=== PATIENT | female | born 1935 | race Caucasian/White ===

== ENCOUNTER 2019-05-14 08:26 | Outpatient (CLI) | payer MEDICARE, OTHER, SELFPAY ==
--- NOTE | 2019-05-17 05:54 | ONC FU_ITS ---
Dr. Arndt Patient Follow-Up Note Patient: Liz Fontaine Unit #: [id number]: 1935 Dicatated By: Tom Arndt M.D.Date of Visit:May 14, 2019 Onc Med Follow-up/Prog Note Chief Complaint: Suspected bone metastases. History of Present Illness: This is an 83 year-old woman with findings on xray and bone scan which were suggestive of possible metastatic disease in the lumbar spine. She has a known history of left breast cancer for which she had undergone left mastectomy in 1980. Those records were not available. I had seen her initially in 2004 after she had a biopsy proven recurrence in the left chest wall. That tumor was confirmed to be ER/NH positive and HER-2/lei negative. She was given prophylactic chest wall radiation followed by adjuvant hormonal therapy with tamoxifen. She stopped treatment in March 2009 due to poor tolerance. As of her follow-up visit in September 2011 there had been no evidence of recurrence of the breast cancer. She has additional history of superficial transitional cell bladder cancer for which she underwent TURBT procedures in July 2007 and in November 2011. 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 At her scheduled follow-up visit with Dr. Berry of 07/25/2018 her x-ray of the lumbar spine showed a new blastic lesion of the L3 vertebral body which was felt to be suspicious for metastatic disease. There was a possible additional blastic lesion on the left side of the sacrum at S1. Further evaluation with bone scan on 08/01/2018 showed intermediate uptake in the right lateral L3 and L2 vertebral bodies. The L3 lesion was noted to correspond to the sclerotic changes seen on the lumbar spine x-ray. More intense uptake involving the left lateral L6 vertebral body was noted to correspond to a large hypertrophic osteophyte. The left sacral lesion seen on the radiograph showed minimal increased uptake. Additional evaluation with MRI was recommended. I had seen her for a follow-up visit on 08/07/2018. She was not overtly symptomatic. She initially declined to have the PET/CT or MRI. However, subsequent laboratory studies did show an elevated CA 27.29 level at 76.82 U/mL, and she then had further evaluation with PET/CT on 09/15/2018. It showed relatively intense activity in the superior left hilar lymph node which measured 8 mm, SUV 6.2. It was felt to be strongly suspicious for recurrent malignancy. However, densely sclerotic lesions at T6 and L3 were entirely FDG negative. There were no other areas of abnormal uptake on that study. A follow-up chest CT on 12/17/2018 showed no evidence for lymph node enlargement. In particular, there was no evidence for a suspicious left perihilar node. There was a small left pleural effusion and there was scarring adjacent to the pleural surface of the lingula thought to most likely be a result of therapy. There was associated volume loss of the left lung. 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 With those findings and in the absence of any associated symptoms, I opted to just continue with observation/expectant management. Her other medical illnesses include hypertension, hyperlipidemia, type II diabetes, and osteoporosis. She has a history of right lower extremity deep vein thrombosis following a left total hip arthroplasty procedure in 2007. She opted to go off anticoagulation after stopping tamoxifen 2009. Her prior surgeries include hysterectomy/bilateral salpingo-oophorectomy in 1977. She has a history of smoking 1 pack of cigarettes daily for 20 years. She quit smoking in 1994. INTERIM HISTORY: As of her follow-up visit in December 2018 there was a slight further increase in the CA-27-29 level to 80.79 U/mL. She remained asymptomatic, and she continued on observation/expectant management. She is seen for a scheduled visit. She has been feeling good generally. She says her energy is fair. She has normal activity. Her appetite is good. Her weight is stable. She has no fever, night sweats, or hot flashes. She has no shortness of breath, cough, or chest pain. She still sometimes has diarrhea. It is controlled with Imodium, though management is difficult because it is unpredictable. She has no other GI or complaints. She has some aching in her joints when she overdoes it, mainly in her shoulders. She still sometimes has pain in her left chest wall. She has no other joint or bone pain. She has no focal neurologic symptoms. Medications: Atenolol 1 Tablet (of 15 mg) Oral daily, Felodipine ER 1 Tablet (of 5 mg) Tablet SR 24 HR Oral daily, Lisinopril 1 (10 mg) Tablet Oral daily, Simvastatin 1 (40 mg) Tablet Oral daily Allergies: Aspirin Review of Systems: Constitutional - Her energy is fair. She has normal activity. Appetite is good and weight is stable. No fever, hot flashes, or night sweats. ECOG score is 0, ENMT - No sinus congestion/drainage. No mouth sores. No sore throat or difficulty swallowing, Hematologic/Lymphatic - She bruises easily, Respiratory - No shortness of breath. No cough. No pleuritic pain or hemoptysis, Cardiovascular - No angina pain. No palpitations, Gastrointestinal - No nausea or vomiting. No heartburn or acid reflux. She sometimes has diarrhea. No blood in the stool or black stools, Genitourinary (F) - No dysuria or hematuria. No urinary frequency. No urgency or incontinence, Musculoskeletal - She has a little joint pain when she overdoes it, mainly in the shoulders. She still occasionally has pain in her left chest wall. She has no other joint or bone pain, Integumentary - No skin complications, Neurologic - No headache or dizziness. She has been getting more clumsy. No numbness/paresthesias or other focal neurologic symptoms, Psychiatric - No anxiety or depression. No insomnia. Vital Signs: Performed on May 14, 2019 12:48 Height - 63.00 in Weight - 145 lbs BSA - 1.69 sq.m BMI - 25.69 Temperature - 98 F (LOW) Pulse - 62 /min Respiration - 14 /min BP - 170/70 mm(hg) (HIGH) O2 Sat - 97 % Pain - 0 Physical Examination: Constitutional - She looks good generally, Eyes - Sclerae nonicteric. Conjunctivae clear, ENMT - No lesions noted in the oral cavity, Hematologic/Lymphatic - No cervical, clavicular, or axillary adenopathy, Respiratory - Lungs are clear with good air movement bilaterally, Cardiovascular - Heart rhythm is regular. There is no murmur, gallop, or rub noted, Abdomen - Soft. Liver and spleen are not enlarged. There is no abdominal mass or ascites noted and there is no inguinal adenopathy, Extremities - No edema. Pedal pulses are palpable bilaterally, Neurologic - No focal neurologic deficits noted. Lab/Imaging: Test performed on Apr 09, 2019 09:17 Glucose 150 mg/dL BUN 19 mg/dL Creatinine 1.33 mg/dL Cr Clearance (Est) 32.69 mL/min Sodium 139 mmol/L Potassium 4.7 mmol/L Chloride 104 mmol/L CO2 24 mmol/L Calcium 9.6 mg/dL Protein, Total 7.5 g/dL Albumin 4.3 g/dL Bilirubin, Total 0.4 mg/dL Alkaline Phosphatase 65 IU/L AST (SGOT) 21 IU/L ALT (SGPT) 15 IU/L WBC 5.3 10^9/L RBC 4.82 10^12/L HGB 14.3 g/dL HCT 45.3 % MCV 94.0 fl MCH 29.7 pg MCHC 31.6 g/dL RDW 13.1 % Platelet Count 208 10^9/L MPV 9.3 fL Neutrophils (Gran) 3.45 10^9/L Lymphocytes 1.06 10^9/L Monocytes 0.58 10^9/L Eosinophils 0.21 10^9/L Manual Lymphocytes 20 % Manual Monocytes 11 % Manual Eosinophils 4 % CA 27.29 82.6 Units/mL Impression: 1. 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 2. She has known history of left breast cancer treated with left mastectomy 1980. She had a chest wall recurrence in 2004 treated by excision followed by radiation and 5 years of adjuvant tamoxifen. 3. 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 4. She had previously undergone TURBT for superficial bladder cancer in July 2007 and in November 2011. Her other medical illnesses include: 5. Hypertension. 6. Hyperlipidemia. 7. Type II diabetes. 8. Chronic kidney disease. 9. Osteoporosis. 10. She has a history of right lower extremity DVT following left total hip arthroplasty in 2007. I had seen her initially on 08/07/2018. She was having some mild back pain, but at that point she preferred to just continue with observation/expectant management. On subsequent evaluation her CA-27-29 level was found to be moderately elevated, suspicious for metastatic breast cancer. Further evaluation with PET/CT on 09/15/2018 showed relatively intense activity in the superior left hilar lymph node which measured 8 mm, SUV 6.2. It was felt to be strongly suspicious for recurrent malignancy. However, densely sclerotic lesions at T6 and L3 were entirely FDG negative. There were no other areas of abnormal uptake on that study. With those findings, I opted to just continue with observation/expectant management. A follow-up chest CT on 12/17/2018 showed no evidence for lymph node enlargement. In particular, there was no evidence for a suspicious left perihilar node. There was a small left pleural effusion and there was scarring adjacent to the pleural surface of the lingula thought to most likely be a result of therapy. There was associated volume loss of the left lung. 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 During subsequent followup there has been a slight further increase in her CA-27-29 level, but her clinical status has remained stable. Overall, the findings are nonspecific but still suspicious for slowly progressive metastatic breast cancer. Plan: She continues on observation/expectant management. She will be scheduled fo a follow-up visit and restaging PET/CT in September, which will exceed a one year interval from the previous study. Signed By: Tom Arndt M.D. <<Signature on File>>
== END 2019-05-14 10:31 | disposition home or self-care (01) ==
PROVIDERS: Family Provider Physician Assistant Medical; PCP Physician Assistant Medical; Visit Provider Internal Medicine Medical Oncology
DX: Z08 Encounter for follow-up examination after completed treatment for malignant neoplasm (principal); Z85.3 Personal history of malignant neoplasm of breast; R97.8 Other abnormal tumor markers; Z85.528 Personal history of other malignant neoplasm of kidney; Z85.51 Personal history of malignant neoplasm of bladder; E78.5 Hyperlipidemia, unspecified; I12.9 Hypertensive chronic kidney disease with stage 1 through stage 4 chronic kidney disease, or unspecified chronic kidney disease; E11.22 Type 2 diabetes mellitus with diabetic chronic kidney disease; N18.9 Chronic kidney disease, unspecified; M81.0 Age-related osteoporosis without current pathological fracture; Z79.899 Other long term (current) drug therapy; Z92.23 Personal history of estrogen therapy; Z90.12 Acquired absence of left breast and nipple; Z92.3 Personal history of irradiation; Z90.5 Acquired absence of kidney; Z86.718 Personal history of other venous thrombosis and embolism; Z96.642 Presence of left artificial hip joint
CPT/HCPCS: 99214

== ENCOUNTER 2019-10-15 13:23 | Outpatient (CLI) | payer MEDICARE, OTHER, SELFPAY ==
--- NOTE | 2019-10-16 07:20 | ONC FU_ITS ---
Dr. Arndt Patient Follow-Up Note Patient: Liz Fontaine Unit #: [id number]: 1935 Dicatated By: Tom Arndt M.D.Date of Visit:Oct 15, 2019 Onc Med Follow-up/Prog Note Chief Complaint: Suspected bone metastases. History of Present Illness: This is an 84 year-old woman with findings on xray and bone scan which were suggestive of possible metastatic disease in the lumbar spine. She has a known history of left breast cancer for which she had undergone left mastectomy in 1980. Those records were not available. I had seen her initially in 2004 after she had a biopsy proven recurrence in the left chest wall. That tumor was confirmed to be ER/WA positive and HER-2/lei negative. She was given prophylactic chest wall radiation followed by adjuvant hormonal therapy with tamoxifen. She stopped treatment in March 2009 due to poor tolerance. As of her follow-up visit in September 2011 there had been no evidence of recurrence of the breast cancer. She has additional history of superficial transitional cell bladder cancer for which she underwent TURBT procedures in July 2007 and in November 2011. 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 At her scheduled follow-up visit with Dr. Berry of 07/25/2018 her x-ray of the lumbar spine showed a new blastic lesion of the L3 vertebral body which was felt to be suspicious for metastatic disease. There was a possible additional blastic lesion on the left side of the sacrum at S1. Further evaluation with bone scan on 08/01/2018 showed intermediate uptake in the right lateral L3 and L2 vertebral bodies. The L3 lesion was noted to correspond to the sclerotic changes seen on the lumbar spine x-ray. More intense uptake involving the left lateral L6 vertebral body was noted to correspond to a large hypertrophic osteophyte. The left sacral lesion seen on the radiograph showed minimal increased uptake. Additional evaluation with MRI was recommended. I had seen her for a follow-up visit on 08/07/2018. She was not overtly symptomatic. She initially declined to have the PET/CT or MRI. However, subsequent laboratory studies did show an elevated CA 27.29 level at 76.82 U/mL, and she then had further evaluation with PET/CT on 09/15/2018. It showed relatively intense activity in the superior left hilar lymph node which measured 8 mm, SUV 6.2. It was felt to be strongly suspicious for recurrent malignancy. However, densely sclerotic lesions at T6 and L3 were entirely FDG negative. There were no other areas of abnormal uptake on that study. A follow-up chest CT on 12/17/2018 showed no evidence for lymph node enlargement. In particular, there was no evidence for a suspicious left perihilar node. There was a small left pleural effusion and there was scarring adjacent to the pleural surface of the lingula thought to most likely be a result of therapy. There was associated volume loss of the left lung. 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 With those findings and in the absence of any associated symptoms, I opted to just continue with observation/expectant management. Her other medical illnesses include hypertension, hyperlipidemia, type II diabetes, and osteoporosis. She has a history of right lower extremity deep vein thrombosis following a left total hip arthroplasty procedure in 2007. She opted to go off anticoagulation after stopping tamoxifen 2009. Her prior surgeries include hysterectomy/bilateral salpingo-oophorectomy in 1977. She has a history of smoking 1 pack of cigarettes daily for 20 years. She quit smoking in 1994. INTERIM HISTORY: As of her follow-up visit in December 2018 there was a slight further increase in the CA-27-29 level to 80.79 U/mL. She remained asymptomatic, and she continued on observation/expectant management. As of March 2019 the CA-27-29 level had further increased to 82.6 U/mL. She is seen for a scheduled visit. She has not been feeling as good generally. Her energy is less, and she has been sitting around a lot. She is still doing light work. Her ECOG score is 1. She has good appetite. She has no fever or night sweats. She says that about a month ago her legs have been hurting her a lot at night. X-rays were apparently unrevealing. She was given pain medication, and she says the legs are not hurting so much now, but they do feel heavy, and she is having to make an effort to pick them up. She also has difficulty getting up from a chair. She has fallen twice. She has some shortness of breath when she is walking outside. Her breathing is otherwise okay. She does not have cough, and she does not complain of chest pain. She has been having diarrhea, but her bowels have been okay for the past couple of months. She has no other GI complaints. She has some urgency with urination. She also has some pain in her lower back/sacroiliac area on the right side. She does not complain of headache. She sometimes has dizziness. She has no focal neurologic symptoms. Medications: Atenolol 1 Tablet (of 15 mg) Oral daily, Felodipine ER 1 Tablet (of 5 mg) Tablet SR 24 HR Oral daily, Lisinopril 1 (10 mg) Tablet Oral daily, Simvastatin 1 (40 mg) Tablet Oral daily Allergies: Aspirin Review of Systems: Constitutional - She feels good, but her energy is just fair. She does light housework. Her appetite is good and weight is stable. No fever, night sweats, or hot flashes. ECOG score is 1, ENMT - No sinus congestion/drainage. No mouth sores. No sore throat or difficulty swallowing, Hematologic/Lymphatic - She bruises easily, Respiratory - She has mild exertional dyspnea. No cough. No pleuritic pain or hemoptysis, Cardiovascular - No angina pain. No palpitations, Gastrointestinal - No nausea or vomiting. No heartburn or acid reflux. She sometimes has diarrhea. No blood in the stool or black stools, Genitourinary (F) - No dysuria or hematuria. She has urinary frequency with urgency. No incontinence, Musculoskeletal - She was having severe pain in her legs. It first occured about 1 month ago and it was mainly at night. She was given pain medication which helped. She reports the pain is better but she has a heaviness in her legs now. This has caused her to fall a few times. She also has some pain in her lower back/sacroiliac area on the right side, Integumentary - No skin complications, Neurologic - No headache or dizziness. No numbness or tingling. No other focal neurologic symptoms, Psychiatric - No anxiety or depression. No insomnia. Vital Signs: Performed on Oct 15, 2019 13:25 Height - 63.00 in Weight - 140 lbs (LOW) BSA - 1.66 sq.m BMI - 24.80 Temperature - 98.4 F Pulse - 71 /min Respiration - 17 /min BP - 157/73 mm(hg) (HIGH) O2 Sat - 96 % Pain - 0 Physical Examination: Constitutional - She looks good generally, Eyes - Sclerae nonicteric. Conjunctivae clear, ENMT - No lesions noted in the oral cavity, Hematologic/Lymphatic - No cervical, clavicular, or axillary adenopathy, Respiratory - Lungs are clear with good air movement bilaterally, Cardiovascular - Heart rhythm is regular. There is no murmur, gallop, or rub noted, Abdomen - Soft. Liver and spleen are not enlarged. There is no abdominal mass or ascites noted and there is no inguinal adenopathy, Extremities - No edema. Pedal pulses are palpable bilaterally, Neurologic - She appears to have some weakness in the proximal leg musculature. There are no focal neurologic deficits noted. Lab/Imaging: Test performed on Oct 14, 2019 09:07 Glucose 142 mg/dL BUN 22 mg/dL Creatinine 1.34 mg/dL Cr Clearance (Est) 31.87 mL/min Sodium 143 mmol/L Potassium 4.4 mmol/L Chloride 110 mmol/L CO2 22 mmol/L Calcium 9.8 mg/dL Protein, Total 7.0 g/dL Albumin 4.1 g/dL Bilirubin, Total 0.5 mg/dL Alkaline Phosphatase 55 IU/L AST (SGOT) 22 IU/L ALT (SGPT) 16 IU/L WBC 5.8 10^9/L RBC 4.44 10^12/L HGB 13.4 g/dL HCT 41.1 % MCV 92.6 fl MCH 30.2 pg MCHC 32.6 g/dL RDW 13.0 % Platelet Count 220 10^9/L MPV 9.2 fL Neutrophils (Gran) 3.38 10^9/L Lymphocytes 1.07 10^9/L Monocytes 0.59 10^9/L Eosinophils 0.66 10^9/L Basophils 0.08 10^9/L Manual Lymphocytes 19 % Manual Monocytes 10 % Manual Eosinophils 11 % Manual Basophils 1 % Impression: 1. 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 2. She has known history of left breast cancer treated with left mastectomy 1980. She had a chest wall recurrence in 2004 treated by excision followed by radiation and 5 years of adjuvant tamoxifen. 3. 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 4. She had previously undergone TURBT for superficial bladder cancer in July 2007 and in November 2011. Her other medical illnesses include: 5. Hypertension. 6. Hyperlipidemia. 7. Type II diabetes. 8. Chronic kidney disease. 9. Osteoporosis. 10. She has a history of right lower extremity DVT following left total hip arthroplasty in 2007. I had seen her initially on 08/07/2018. She was having some mild back pain, but at that point she preferred to just continue with observation/expectant management. On subsequent evaluation her CA-27-29 level was found to be moderately elevated, suspicious for metastatic breast cancer. Further evaluation with PET/CT on 09/15/2018 showed relatively intense activity in the superior left hilar lymph node which measured 8 mm, SUV 6.2. It was felt to be strongly suspicious for recurrent malignancy. However, densely sclerotic lesions at T6 and L3 were entirely FDG negative. There were no other areas of abnormal uptake on that study. With those findings, I opted to just continue with observation/expectant management. A follow-up chest CT on 12/17/2018 showed no evidence for lymph node enlargement. In particular, there was no evidence for a suspicious left perihilar node. There was a small left pleural effusion and there was scarring adjacent to the pleural surface of the lingula thought to most likely be a result of therapy. There was associated volume loss of the left lung. 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 During subsequent followup there was a continued slight increase in her CA-27-29 levels, but her clinical status had remained stable. Since her visit in March 2019 there has been a decline in her activity tolerance, and she also appears to have developed some weakness in the proximal leg musculature. The current CA-27-29 level is pending, but overall I remain concerned about the possibility of very slowly progressive metastatic breast cancer and also about the possibility of a paraneoplastic neuromuscular process. Plan: At this point I will wait for the results of the CA-27-29 level. If there is any further increase I will schedule her for a repeat bone scan. She will have further evaluation with PET/CT as indicated. Signed By: Tom Arndt M.D. <<Signature on File>>
== END 2019-10-15 13:24 | disposition home or self-care (01) ==
PROVIDERS: PCP Physician Assistant Medical; Visit Provider Internal Medicine Medical Oncology
DX: R93.7 Abnormal findings on diagnostic imaging of other parts of musculoskeletal system (principal); R97.8 Other abnormal tumor markers; Z85.3 Personal history of malignant neoplasm of breast; M62.81 Muscle weakness (generalized)
CPT/HCPCS: 99214

== ENCOUNTER 2020-01-14 11:26 | Outpatient (CLI) | payer MEDICARE, OTHER, SELFPAY ==
--- NOTE | 2020-01-17 18:00 | ONC FU_ITS ---
Dr. Arndt Patient Follow-Up Note Patient: Liz Fontaine Unit #: [id number]: 1935 Dicatated By: Tom Arndt M.D.Date of Visit:Jan 14, 2020 Onc Med Follow-up/Prog Note Chief Complaint: Suspected bone metastases. History of Present Illness: This is an 84 year-old woman with findings on xray and bone scan which were suggestive of possible metastatic disease in the lumbar spine. She has a known history of left breast cancer for which she had undergone left mastectomy in 1980. Those records were not available. I had seen her initially in 2004 after she had a biopsy proven recurrence in the left chest wall. That tumor was confirmed to be ER/MS positive and HER-2/lei negative. She was given prophylactic chest wall radiation followed by adjuvant hormonal therapy with tamoxifen. She stopped treatment in March 2009 due to poor tolerance. As of her follow-up visit in September 2011 there had been no evidence of recurrence of the breast cancer. She has additional history of superficial transitional cell bladder cancer for which she underwent TURBT procedures in July 2007 and in November 2011. 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 At her scheduled follow-up visit with Dr. Berry of 07/25/2018 her x-ray of the lumbar spine showed a new blastic lesion of the L3 vertebral body which was felt to be suspicious for metastatic disease. There was a possible additional blastic lesion on the left side of the sacrum at S1. Further evaluation with bone scan on 08/01/2018 showed intermediate uptake in the right lateral L3 and L2 vertebral bodies. The L3 lesion was noted to correspond to the sclerotic changes seen on the lumbar spine x-ray. More intense uptake involving the left lateral L6 vertebral body was noted to correspond to a large hypertrophic osteophyte. The left sacral lesion seen on the radiograph showed minimal increased uptake. Additional evaluation with MRI was recommended. I had seen her for a follow-up visit on 08/07/2018. She was not overtly symptomatic. She initially declined to have the PET/CT or MRI. However, subsequent laboratory studies did show an elevated CA 27.29 level at 76.82 U/mL, and she then had further evaluation with PET/CT on 09/15/2018. It showed relatively intense activity in the superior left hilar lymph node which measured 8 mm, SUV 6.2. It was felt to be strongly suspicious for recurrent malignancy. However, densely sclerotic lesions at T6 and L3 were entirely FDG negative. There were no other areas of abnormal uptake on that study. A follow-up chest CT on 12/17/2018 showed no evidence for lymph node enlargement. In particular, there was no evidence for a suspicious left perihilar node. There was a small left pleural effusion and there was scarring adjacent to the pleural surface of the lingula thought to most likely be a result of therapy. There was associated volume loss of the left lung. 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 With those findings and in the absence of any associated symptoms, I opted to just continue with observation/expectant management. Her other medical illnesses include hypertension, hyperlipidemia, type II diabetes, and osteoporosis. She has a history of right lower extremity deep vein thrombosis following a left total hip arthroplasty procedure in 2007. She opted to go off anticoagulation after stopping tamoxifen 2009. Her prior surgeries include hysterectomy/bilateral salpingo-oophorectomy in 1977. She has a history of smoking 1 pack of cigarettes daily for 20 years. She quit smoking in 1994. INTERIM HISTORY: As of her follow-up visit in December 2018 there was a slight further increase in the CA-27-29 level to 80.79 U/mL. She remained asymptomatic, and she continued on observation/expectant management. As of March 2019 the CA-27-29 level had further increased to 82.6 U/mL. She is seen for a scheduled visit. She says she is doing fine. She has pretty good energy and she has normal activity. ECOG score is 0. Her appetite is good. She has no fever or night sweats. She has no shortness of breath, cough, or chest pain. She has no GI or complaints other than she is voiding more frequently now. She has no significant joint or bone pain. She has no focal neurologic symptoms. Medications: Atenolol 1 Tablet (of 15 mg) Oral daily, Felodipine ER 1 Tablet (of 5 mg) Tablet SR 24 HR Oral daily, Lisinopril 1 (10 mg) Tablet Oral daily, Simvastatin 1 (40 mg) Tablet Oral daily Allergies: Aspirin Review of Systems: Constitutional - She has been feeling fine. Her energy is good. She has normal activity without restrictions. Her appetite is good and her weight is stable. No fever, night sweats, or hot flashes. ECOG score is 0, ENMT - No sinus congestion/drainage. No mouth sores. No sore throat or difficulty swallowing, Hematologic/Lymphatic - She bruises easily, Respiratory - No shortness of breath. No cough. No pleuritic pain or hemoptysis, Cardiovascular - No angina pain. No palpitations, Gastrointestinal - No nausea or vomiting. No heartburn or acid reflux. No diarrhea or constipation. No blood in the stool or black stools, Genitourinary (F) - No dysuria or hematuria. She's noticed more frequency in urination. No urgency or incontinence, Musculoskeletal - No joint or bone pain, Integumentary - No skin complications, Neurologic - No headache. She has occasional dizziness. No numbness or tingling. No other focal neurologic symptoms, Psychiatric - No anxiety or depression. No insomnia. Vital Signs: Performed on Jan 14, 2020 11:27 Height - 63.00 in Weight - 140 lbs BSA - 1.66 sq.m BMI - 24.80 Temperature - 97.1 F (LOW) Pulse - 59 /min (LOW) Respiration - 16 /min BP - 142/58 mm(hg) (HIGH) O2 Sat - 97 % Pain - 0 Physical Examination: Constitutional - She looks good generally, Eyes - Sclerae nonicteric. Conjunctivae clear, ENMT - No lesions noted in the oral cavity, Hematologic/Lymphatic - No cervical, clavicular, or axillary adenopathy, Respiratory - Lungs are clear with good air movement bilaterally, Cardiovascular - Heart rhythm is regular. There is no murmur, gallop, or rub noted, Abdomen - Soft. Liver and spleen are not enlarged. There is no abdominal mass or ascites noted and there is no inguinal adenopathy, Extremities - No edema, Neurologic - No focal neurologic deficits noted. Lab/Imaging: Test performed on Jan 09, 2020 14:47 Glucose 150 mg/dL BUN 25 mg/dL Creatinine 1.34 mg/dL Cr Clearance (Est) 30.77 mL/min Sodium 138 mmol/L Potassium 4.9 mmol/L Chloride 106 mmol/L CO2 23 mmol/L Calcium 9.8 mg/dL Protein, Total 7 g/dL Albumin 4.1 g/dL Bilirubin, Total 0.3 mg/dL Alkaline Phosphatase 70 IU/L AST (SGOT) 20 IU/L ALT (SGPT) 15 IU/L WBC 6.4 10^9/L RBC 4.62 10^12/L HGB 13.8 g/dL HCT 43.5 % MCV 94.2 fl MCH 29.9 pg MCHC 31.7 g/dL RDW 12.7 % Platelet Count 233 10^9/L Neutrophils (Gran) 3.78 10^9/L Lymphocytes 1.14 10^9/L Monocytes 0.65 10^9/L Eosinophils 0.67 10^9/L Basophils 0.09 10^9/L Test performed on Jan 09, 2020 09:44 CA 15-3 53.3 Units/mL Impression: 1. 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 2. She has known history of left breast cancer treated with left mastectomy 1980. She had a chest wall recurrence in 2004 treated by excision followed by radiation and 5 years of adjuvant tamoxifen. 3. 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 4. She had previously undergone TURBT for superficial bladder cancer in July 2007 and in November 2011. Her other medical illnesses include: 5. Hypertension. 6. Hyperlipidemia. 7. Type II diabetes. 8. Chronic kidney disease. 9. Osteoporosis. 10. She has a history of right lower extremity DVT following left total hip arthroplasty in 2007. I had seen her initially on 08/07/2018. She was having some mild back pain, but at that point she preferred to just continue with observation/expectant management. On subsequent evaluation her CA-27-29 level was found to be moderately elevated, suspicious for metastatic breast cancer. Further evaluation with PET/CT on 09/15/2018 showed relatively intense activity in the superior left hilar lymph node which measured 8 mm, SUV 6.2. It was felt to be strongly suspicious for recurrent malignancy. However, densely sclerotic lesions at T6 and L3 were entirely FDG negative. There were no other areas of abnormal uptake on that study. With those findings, I opted to just continue with observation/expectant management. A follow-up chest CT on 12/17/2018 showed no evidence for lymph node enlargement. In particular, there was no evidence for a suspicious left perihilar node. There was a small left pleural effusion and there was scarring adjacent to the pleural surface of the lingula thought to most likely be a result of therapy. There was associated volume loss of the left lung. 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 During subsequent followup there was a continued slight increase in her CA-27-29 levels, but her clinical status had remained stable. Subsequent to her visit in March 2019 she had experienced some decline in her activity tolerance, and she also had developed some weakness in the proximal leg musculature. A specific cause for that was not determined, and she has since then been feeling better. Her repeat CA 27-29 level in September had come down a little, to 72.2 U/mL. The current level cannot be compared, as it was substituted with a CA 15-3. However, based on the reported normal range, it does not appear to have increased. Plan: She remains on observation/expectant management. I will see her again in 3 months. Signed By: Tom Arndt M.D. <<Signature on File>>
== END 2020-01-14 11:27 | disposition home or self-care (01) ==
LOC: ONCMED 11:26
PROVIDERS: PCP Physician Assistant Medical; Visit Provider Internal Medicine Medical Oncology
DX: Z08 Encounter for follow-up examination after completed treatment for malignant neoplasm (principal); Z85.3 Personal history of malignant neoplasm of breast; Z85.830 Personal history of malignant neoplasm of bone; M81.0 Age-related osteoporosis without current pathological fracture; I10 Essential (primary) hypertension; E78.5 Hyperlipidemia, unspecified; E11.9 Type 2 diabetes mellitus without complications; N18.9 Chronic kidney disease, unspecified; Z86.718 Personal history of other venous thrombosis and embolism; Z79.818 Long term (current) use of other agents affecting estrogen receptors and estrogen levels
CPT/HCPCS: G0463

== ENCOUNTER 2020-04-14 11:30 | Outpatient (CLI) | payer MEDICARE, OTHER, SELFPAY ==
--- NOTE | 2020-04-17 17:19 | ONC FU_ITS ---
Dr. Arndt Patient Follow-Up Note Patient: Liz Fontaine Unit #: [id number]: 1935 Dicatated By: Tom Arndt M.D.Date of Visit:Apr 14, 2020 Onc Med Follow-up/Prog Note Chief Complaint: Suspected bone metastases. History of Present Illness: This is an 84 year-old woman with findings on xray and bone scan which were suggestive of possible metastatic disease in the lumbar spine. She has a known history of left breast cancer for which she had undergone left mastectomy in 1980. Those records were not available. I had seen her initially in 2004 after she had a biopsy proven recurrence in the left chest wall. That tumor was confirmed to be ER/AR positive and HER-2/lei negative. She was given prophylactic chest wall radiation followed by adjuvant hormonal therapy with tamoxifen. She stopped treatment in March 2009 due to poor tolerance. As of her follow-up visit in September 2011 there had been no evidence of recurrence of the breast cancer. She has additional history of superficial transitional cell bladder cancer for which she underwent TURBT procedures in July 2007 and in November 2011. 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 At her scheduled follow-up visit with Dr. Berry of 07/25/2018 her x-ray of the lumbar spine showed a new blastic lesion of the L3 vertebral body which was felt to be suspicious for metastatic disease. There was a possible additional blastic lesion on the left side of the sacrum at S1. Further evaluation with bone scan on 08/01/2018 showed intermediate uptake in the right lateral L3 and L2 vertebral bodies. The L3 lesion was noted to correspond to the sclerotic changes seen on the lumbar spine x-ray. More intense uptake involving the left lateral L6 vertebral body was noted to correspond to a large hypertrophic osteophyte. The left sacral lesion seen on the radiograph showed minimal increased uptake. Additional evaluation with MRI was recommended. I had seen her for a follow-up visit on 08/07/2018. She was not overtly symptomatic. She initially declined to have the PET/CT or MRI. However, subsequent laboratory studies did show an elevated CA 27.29 level at 76.82 U/mL, and she then had further evaluation with PET/CT on 09/15/2018. It showed relatively intense activity in the superior left hilar lymph node which measured 8 mm, SUV 6.2. It was felt to be strongly suspicious for recurrent malignancy. However, densely sclerotic lesions at T6 and L3 were entirely FDG negative. There were no other areas of abnormal uptake on that study. A follow-up chest CT on 12/17/2018 showed no evidence for lymph node enlargement. In particular, there was no evidence for a suspicious left perihilar node. There was a small left pleural effusion and there was scarring adjacent to the pleural surface of the lingula thought to most likely be a result of therapy. There was associated volume loss of the left lung. 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 With those findings and in the absence of any associated symptoms, I opted to just continue with observation/expectant management. Her other medical illnesses include hypertension, hyperlipidemia, type II diabetes, and osteoporosis. She has a history of right lower extremity deep vein thrombosis following a left total hip arthroplasty procedure in 2007. She opted to go off anticoagulation after stopping tamoxifen 2009. Her prior surgeries include hysterectomy/bilateral salpingo-oophorectomy in 1977. She has a history of smoking 1 pack of cigarettes daily for 20 years. She quit smoking in 1994. INTERIM HISTORY: As of her follow-up visit in December 2018 there was a slight further increase in the CA-27-29 level to 80.79 U/mL. She remained asymptomatic, and she continued on observation/expectant management. As of March 2019 the CA-27-29 level had further increased to 82.6 U/mL. However, on a repeat study in September 2019 it was back down to 72.2 U/mL. As of December 2019 the study was arbitrarily changed to a 15-3 level, which was elevated at 53.3 U/mL. She is seen for a scheduled visit. She has been feeling good generally. Her main complaint is that her legs still feel heavy, but she says she does get around and she does all her housework. ECOG score is 1. She has good appetite. She has no fever, night sweats, or hot flashes. She has no shortness of breath, cough, or chest pain. She has no GI/ complaints other than some urinary frequency. She has no significant joint or bone pain. She does not complain of headache. She occasionally has dizziness. She has no numbness/paresthesia or other focal neurologic symptoms. Medications: Atenolol 1 Tablet (of 15 mg) Oral daily, Felodipine ER 1 Tablet (of 5 mg) Tablet SR 24 HR Oral daily, Lisinopril 1 (10 mg) Tablet Oral daily, Simvastatin 1 (40 mg) Tablet Oral daily Allergies: Aspirin Vital Signs: Performed on Apr 14, 2020 11:28 Height - 63.00 in Weight - 140 lbs BSA - 1.66 sq.m BMI - 24.80 Temperature - 98.1 F (LOW) Pulse - 61 /min Respiration - 16 /min BP - 140/66 mm(hg) O2 Sat - 96 % Pain - 0 Physical Examination: Constitutional - She looks good generally, Eyes - Sclerae nonicteric. Conjunctivae clear, ENMT - No lesions noted in the oral cavity, Hematologic/Lymphatic - No cervical or clavicular adenopathy, Respiratory - Lungs are clear with good air movement bilaterally, Cardiovascular - Heart rhythm is regular. There is no murmur, gallop, or rub noted, Breasts - There are no lesions noted in the left chest wall. The right breast shows no mass. There is no axillary adenopathy, Abdomen - Soft. Liver and spleen are not enlarged. There is no abdominal mass or ascites noted and there is no inguinal adenopathy, Extremities - No edema, Neurologic - No focal neurologic deficits noted. Lab/Imaging: Test performed on Apr 09, 2020 16:32 Glucose 125 mg/dL BUN 29 mg/dL Creatinine 1.35 mg/dL Cr Clearance (Est) 30.54 mL/min Sodium 140 mmol/L Potassium 4.3 mmol/L Chloride 106 mmol/L CO2 24 mmol/L Calcium 10 mg/dL Protein, Total 7.5 g/dL Albumin 4.1 g/dL Bilirubin, Total 0.3 mg/dL Alkaline Phosphatase 58 IU/L AST (SGOT) 16 IU/L ALT (SGPT) 12 IU/L WBC 8.2 10^9/L RBC 4.95 10^12/L HGB 14.6 g/dL HCT 46.6 % MCV 29.5 fl MCH 29.5 pg MCHC 31.3 g/dL RDW 46.3 % Platelet Count 228 10^9/L Neutrophils (Gran) 5.54 10^9/L Lymphocytes 1.21 10^9/L Monocytes 0.74 10^9/L Eosinophils 0.62 10^9/L Basophils 0.08 10^9/L Test performed on Apr 09, 2020 09:17 CA 15-3 61.8 Units/mL Problem List: 1. 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 2. History of left breast cancer treated with left mastectomy in 1980. She had a chest wall recurrence in 2004 treated by excision followed by radiation and 5 years of adjuvant tamoxifen. 3. 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 4. She had previously undergone TURBT for superficial bladder cancer in July 2007 and in November 2011. 5. Hypertension. 6. Hyperlipidemia. 7. Type II diabetes. 8. Chronic kidney disease. 9. Osteoporosis. 10. She has a history of right lower extremity DVT following left total hip arthroplasty in 2007. I had seen her initially on 08/07/2018. She was having some mild back pain, but at that point she preferred to just continue with observation/expectant management. On subsequent evaluation her CA-27-29 level was found to be moderately elevated, suspicious for metastatic breast cancer. Further evaluation with PET/CT on 09/15/2018 showed relatively intense activity in the superior left hilar lymph node which measured 8 mm, SUV 6.2. It was felt to be strongly suspicious for recurrent malignancy. However, densely sclerotic lesions at T6 and L3 were entirely FDG negative. There were no other areas of abnormal uptake on that study. With those findings, I opted to just continue with observation/expectant management. A follow-up chest CT on 12/17/2018 showed no evidence for lymph node enlargement. In particular, there was no evidence for a suspicious left perihilar node. There was a small left pleural effusion and there was scarring adjacent to the pleural surface of the lingula thought to most likely be a result of therapy. There was associated volume loss of the left lung. 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 During subsequent followup there was a continued slight increase in her CA-27-29 levels, but her clinical status had remained stable. Subsequent to her visit in March 2019 she had experienced some decline in her activity tolerance, and she also had developed some weakness in the proximal leg musculature. A specific cause for that was not determined, and she has since then been feeling better. Her repeat CA 27-29 level in September had come down a little, to 72.2 U/mL. The current level cannot be compared, as it was substituted with a CA 15-3. However, based on the reported normal range, it does not appear to have increased. Problems Addressed with this Encounter and Plan: 1. 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 She also has elevated tumor markers for breast cancer. Overall, the findings have been suspicious for slowly progressive metastatic breast cancer, though she has not been symptomatic and metastatic disease has not been clearly documented. Given these findings, she has been followed on observation/expectant management. During follow-up she has had complaints of heaviness in her legs which is somewhat concerning for the possibility of a paraneoplastic neuromuscular syndrome. However, she has had no bone pain and her clinical status has otherwise remained stable. As such, I will continue to manage her expectantly. I will see her again in 3 months. 2. History of left breast cancer treated with left mastectomy in 1980. She had a chest wall recurrence in 2004 treated by excision followed by radiation and 5 years of adjuvant tamoxifen. With her previous recurrence and elevated tumor markers, there is concern of possible metastatic breast cancer. 3. 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 She had previously undergone TURBT for superficial bladder cancer in July 2007 and in November 2011. She has not been continuing a regular urology follow-up, and I will have to contact Dr. Berry for his recommendations. Signed By: Tom Arndt M.D. <<Signature on File>>
== END 2020-04-14 11:31 | disposition home or self-care (01) ==
LOC: ONCMED 04-15 09:53
PROVIDERS: PCP Physician Assistant Medical; Visit Provider Internal Medicine Medical Oncology
DX: Z08 Encounter for follow-up examination after completed treatment for malignant neoplasm (principal); Z85.528 Personal history of other malignant neoplasm of kidney; R93.7 Abnormal findings on diagnostic imaging of other parts of musculoskeletal system; R29.818 Other symptoms and signs involving the nervous system; Z85.3 Personal history of malignant neoplasm of breast; Z85.51 Personal history of malignant neoplasm of bladder; Z90.12 Acquired absence of left breast and nipple; Z92.3 Personal history of irradiation; Z92.23 Personal history of estrogen therapy; Z90.5 Acquired absence of kidney
CPT/HCPCS: 99214

== ENCOUNTER 2020-07-07 13:56 | Outpatient (CLI) | payer MEDICARE, OTHER, SELFPAY ==
--- NOTE | 2020-07-07 17:59 | ONC FU_ITS ---
Dr. Arndt Patient Follow-Up Note Patient: Liz Fontaine Unit #: [id number]: 1935 Dicatated By: Tom Arndt M.D.Date of Visit:Jul 07, 2020 Onc Med Follow-up/Prog Note Chief Complaint: Suspected bone metastases. History of Present Illness: This is an 84 year-old woman with findings on xray and bone scan which were suspicious for metastatic disease in the lumbar spine. She has a known history of left breast cancer for which she had undergone left mastectomy in 1980. Those records were not available. I had seen her initially in 2004 after she had a biopsy proven recurrence in the left chest wall. That tumor was confirmed to be ER/MN positive and HER-2/lei negative. She was given prophylactic chest wall radiation followed by adjuvant hormonal therapy with tamoxifen. She stopped treatment in March 2009 due to poor tolerance. As of her follow-up visit in September 2011 there had been no evidence of recurrence of the breast cancer. She has additional history of superficial transitional cell bladder cancer for which she underwent TURBT procedures in July 2007 and in November 2011. 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 At her scheduled follow-up visit with Dr. Berry of 07/25/2018 her x-ray of the lumbar spine showed a new blastic lesion of the L3 vertebral body which was felt to be suspicious for metastatic disease. There was a possible additional blastic lesion on the left side of the sacrum at S1. Further evaluation with bone scan on 08/01/2018 showed intermediate uptake in the right lateral L3 and L2 vertebral bodies. The L3 lesion was noted to correspond to the sclerotic changes seen on the lumbar spine x-ray. More intense uptake involving the left lateral L6 vertebral body was noted to correspond to a large hypertrophic osteophyte. The left sacral lesion seen on the radiograph showed minimal increased uptake. Additional evaluation with MRI was recommended. I had seen her for a follow-up visit on 08/07/2018. She was not overtly symptomatic. She initially declined to have the PET/CT or MRI. However, subsequent laboratory studies did show an elevated CA 27.29 level at 76.82 U/mL, and she then had further evaluation with PET/CT on 09/15/2018. It showed relatively intense activity in the superior left hilar lymph node which measured 8 mm, SUV 6.2. It was felt to be strongly suspicious for recurrent malignancy. However, densely sclerotic lesions at T6 and L3 were entirely FDG negative. There were no other areas of abnormal uptake on that study. A follow-up chest CT on 12/17/2018 showed no evidence for lymph node enlargement. In particular, there was no evidence for a suspicious left perihilar node. There was a small left pleural effusion and there was scarring adjacent to the pleural surface of the lingula thought to most likely be a result of therapy. There was associated volume loss of the left lung. 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 With those findings and in the absence of any associated symptoms, I opted to just continue with observation/expectant management. As of her follow-up visit in December 2018 there was a slight further increase in the CA-27-29 level to 80.79 U/mL, but she remained asymptomatic. As of March 2019 the CA-27-29 level had further increased to 82.6 U/mL. However, on a repeat study in September 2019 it was back down to 72.2 U/mL. At that point she appeared stable clinically, and she continued expectant management. Her other medical illnesses include hypertension, hyperlipidemia, type II diabetes, and osteoporosis. She has a history of right lower extremity deep vein thrombosis following a left total hip arthroplasty procedure in 2007. She opted to go off anticoagulation after stopping tamoxifen 2009. Her prior surgeries include hysterectomy/bilateral salpingo-oophorectomy in 1977. She has a history of smoking 1 pack of cigarettes daily for 20 years. She quit smoking in 1994. INTERIM HISTORY: As of December 2019 her tumor marker was arbitrarily changed to a 15-3 level, which was elevated at 53.3 U/mL. At her follow-up visit in March 2020 it was slightly higher at 61.8 U/mL. She is seen for a scheduled visit. She had recently been in to see Ar Reyes with complaints of increased pain in both legs. He opted to give her a steroid taper over 12 days, and she had dramatic improvement in the pain. Thus far she has had no recurrence of the pain since completing the treatment. She still complains that her legs feel weak and she says she has difficulty navigating. She is still doing light work and living independently. ECOG score is 1. She has good appetite. She has no fever or night sweats. She has no shortness of breath, cough, or chest pain. She has no GI or complaints other than frequent urination. She has had no other joint or bone pain. She does not complain of headache or dizziness. She has no numbness/paresthesia or other focal neurologic symptoms. Medications: Atenolol 1 Tablet (of 15 mg) Oral daily, Felodipine ER 1 Tablet (of 5 mg) Tablet SR 24 HR Oral daily, Lisinopril 1 (10 mg) Tablet Oral daily, Simvastatin 1 (40 mg) Tablet Oral daily Allergies: Aspirin Vital Signs: Performed on Jul 07, 2020 13:54 Height - 63.00 in Weight - 130 lbs (LOW) BSA - 1.61 sq.m BMI - 23.03 Temperature - 97.6 F (LOW) Pulse - 75 /min Respiration - 17 /min BP - 132/56 mm(hg) O2 Sat - 97 % Pain - 5 Physical Examination: Constitutional - She looks good generally, Eyes - Sclerae nonicteric. Conjunctivae clear, ENMT - No lesions noted in the oral cavity, Hematologic/Lymphatic - No cervical, clavicular, or axillary adenopathy, Respiratory - Lungs are clear with good air movement bilaterally, Cardiovascular - Heart rhythm is regular. There is no murmur, gallop, or rub noted, Abdomen - Soft. Liver and spleen are not enlarged. There is no abdominal mass or ascites noted and there is no inguinal adenopathy, Back/Spine - No spine or CVA tenderness noted, Extremities - No edema, Neurologic - There are no focal neurologic deficits noted. I cannot demonstrate any definite muscle weakness. Lab/Imaging: Test performed on Jul 03, 2020 08:03 Glucose 165 mg/dL BUN 25 mg/dL Creatinine 1.35 mg/dL Cr Clearance (Est) 30.54 mL/min Sodium 137 mmol/L Potassium 4.8 mmol/L Chloride 105 mmol/L CO2 23 mmol/L Calcium 9.6 mg/dL Protein, Total 6.6 g/dL Albumin 3.7 g/dL Bilirubin, Total 0.4 mg/dL Alkaline Phosphatase 71 IU/L AST (SGOT) 23 IU/L ALT (SGPT) 28 IU/L WBC 7.9 10^9/L RBC 4.71 10^12/L HGB 14.1 g/dL HCT 44.7 % MCV 94.9 fl MCH 29.9 pg MCHC 31.5 g/dL RDW 13.6 % Platelet Count 229 10^9/L MPV 9.4 fL Neutrophils (Gran) 5.38 10^9/L Lymphocytes 1.12 10^9/L Monocytes 0.79 10^9/L Eosinophils 0.45 10^9/L Basophils 0.05 10^9/L Manual Lymphocytes 14 % Manual Monocytes 10 % Manual Eosinophils 6 % Manual Basophils 1 % CA 15-3 65.6 Units/mL Problem List: 1. 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 2. History of left breast cancer treated with left mastectomy in 1980. She had a chest wall recurrence in 2004 treated by excision followed by radiation and 5 years of adjuvant tamoxifen. 3. 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 4. She had previously undergone TURBT for superficial bladder cancer in July 2007 and in November 2011. 5. Hypertension. 6. Hyperlipidemia. 7. Type II diabetes. 8. Chronic kidney disease. 9. Osteoporosis. 10. She has a history of right lower extremity DVT following left total hip arthroplasty in 2007. Problems Addressed with this Encounter and Plan: 1. Patient with suspected osteoblastic metastatic disease involving the L3 vertebral body and possibly sacrum, based on abnormal imaging studies, including CT and bone scans. She also has elevated tumor markers for breast cancer, which have been slowly increasing. Overall, I have felt that the the findings have been suspicious for slowly progressive metastatic breast cancer, though metastatic disease has never been clearly documented. She has previously not been symptomatic, but she recently has been having pain in both legs. The pain has resolved with a course of steroid therapy, but she continues now to complain of leg weakness. The underlying cause is uncertain. The response to steroid is somewhat suspicious for polymyalgia rheumatica. However, in the context of her other issues, I also wonder about the possibility of a paraneoplastic syndrome. Nonetheless, in the absence of any more definitive evidence of metastatic disease, she will continue on observation/symptomatic management. I did asked her to call if there is any recurrence of her leg pain or development of any new symptoms. I will otherwise just plan to see her for a follow-up visit in 3 months. 2. History of left breast cancer treated with left mastectomy in 1980. She had a chest wall recurrence in 2004 treated by excision followed by radiation and 5 years of adjuvant tamoxifen. With her previous recurrence and elevated tumor markers, there is ongoing concern for metastatic breast cancer. 3. 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 She had previously undergone TURBT for superficial bladder cancer in July 2007 and in November 2011. She has not been continuing a regular urology follow-up, and I will have to contact Dr. Berry for his recommendations. Signed By: Tom Arndt M.D. <<Signature on File>>
== END 2020-07-07 13:57 | disposition home or self-care (01) ==
LOC: ONCMED 13:56
PROVIDERS: PCP Physician Assistant Medical; Visit Provider Internal Medicine Medical Oncology
DX: C50.812 Malignant neoplasm of overlapping sites of left female breast (principal); Z17.0 Estrogen receptor positive status [ER+]; Z90.12 Acquired absence of left breast and nipple; C79.51 Secondary malignant neoplasm of bone; C79.02 Secondary malignant neoplasm of left kidney and renal pelvis; I10 Essential (primary) hypertension; E78.5 Hyperlipidemia, unspecified; E11.22 Type 2 diabetes mellitus with diabetic chronic kidney disease; N18.9 Chronic kidney disease, unspecified; M81.0 Age-related osteoporosis without current pathological fracture; Z86.718 Personal history of other venous thrombosis and embolism; Z79.811 Long term (current) use of aromatase inhibitors
CPT/HCPCS: 99214

== ENCOUNTER 2020-12-15 13:17 | Outpatient (CLI) | payer MEDICARE, OTHER, SELFPAY ==
--- NOTE | 2020-12-15 17:49 | ONC FU_ITS ---
Dr. Arndt Patient Follow-Up Note Patient: Liz Fontaine Unit #: [id number]: 1935 Dicatated By: Tom Arndt M.D.Date of Visit:Dec 15, 2020 Onc Med Follow-up/Prog Note Chief Complaint: Suspected bone metastases. History of Present Illness: This is an 85 year-old woman with findings on xray and bone scan which were suspicious for metastatic disease in the lumbar spine. She has a known history of left breast cancer for which she had undergone left mastectomy in 1980. Those records were not available. I had seen her initially in 2004 after she had a biopsy proven recurrence in the left chest wall. That tumor was confirmed to be ER/TX positive and HER-2/lei negative. She was given prophylactic chest wall radiation followed by adjuvant hormonal therapy with tamoxifen. She stopped treatment in March 2009 due to poor tolerance. As of her follow-up visit in September 2011 there had been no evidence of recurrence of the breast cancer. She has additional history of superficial transitional cell bladder cancer for which she underwent TURBT procedures in July 2007 and in November 2011. 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 At her scheduled follow-up visit with Dr. Berry of 07/25/2018 her x-ray of the lumbar spine showed a new blastic lesion of the L3 vertebral body which was felt to be suspicious for metastatic disease. There was a possible additional blastic lesion on the left side of the sacrum at S1. Further evaluation with bone scan on 08/01/2018 showed intermediate uptake in the right lateral L3 and L2 vertebral bodies. The L3 lesion was noted to correspond to the sclerotic changes seen on the lumbar spine x-ray. More intense uptake involving the left lateral L6 vertebral body was noted to correspond to a large hypertrophic osteophyte. The left sacral lesion seen on the radiograph showed minimal increased uptake. Additional evaluation with MRI was recommended. I had seen her for a follow-up visit on 08/07/2018. She was not overtly symptomatic. She initially declined to have the PET/CT or MRI. However, subsequent laboratory studies did show an elevated CA 27.29 level at 76.82 U/mL, and she then had further evaluation with PET/CT on 09/15/2018. It showed relatively intense activity in the superior left hilar lymph node which measured 8 mm, SUV 6.2. It was felt to be strongly suspicious for recurrent malignancy. However, densely sclerotic lesions at T6 and L3 were entirely FDG negative. There were no other areas of abnormal uptake on that study. A follow-up chest CT on 12/17/2018 showed no evidence for lymph node enlargement. In particular, there was no evidence for a suspicious left perihilar node. There was a small left pleural effusion and there was scarring adjacent to the pleural surface of the lingula thought to most likely be a result of therapy. There was associated volume loss of the left lung. 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 With those findings and in the absence of any associated symptoms, I opted to just continue with observation/expectant management. As of her follow-up visit in December 2018 there was a slight further increase in the CA-27-29 level to 80.79 U/mL, but she remained asymptomatic. As of March 2019 the CA-27-29 level had further increased to 82.6 U/mL. However, on a repeat study in September 2019 it was back down to 72.2 U/mL. At that point she appeared stable clinically, and she continued expectant management. Her other medical illnesses include hypertension, hyperlipidemia, type II diabetes, and osteoporosis. She has a history of right lower extremity deep vein thrombosis following a left total hip arthroplasty procedure in 2007. She opted to go off anticoagulation after stopping tamoxifen 2009. Her prior surgeries include hysterectomy/bilateral salpingo-oophorectomy in 1977. She has a history of smoking 1 pack of cigarettes daily for 20 years. She quit smoking in 1994. INTERIM HISTORY: As of December 2019 her tumor marker was arbitrarily changed to a 15-3 level, which was elevated at 53.3 U/mL. At her follow-up visit in March 2020 it was slightly higher at 61.8 U/mL, and in June 2020 it had further increased to 65.6 U/mL. At that point she appeared stable clinically, and she continued expectant management. On 12/07/2020 she had presented to the emergency room in [place] complaining of pain on her left side. It had been getting worse over period of a couple of weeks. Her laboratory studies were unrevealing. CT scans of the chest, abdomen, and pelvis showed evidence of moderate sized left pleural fluid collection which appeared loculated and concerning for malignant effusion. Airspace opacity within the lateral aspect of the left upper lobe and left lower lobe was felt to represent round atelectasis. There were changes in the left lung apex which appeared consistent with post therapeutic fibrosis. Nonspecific interstitial and groundglass opacities involving the posterior aspect of the right upper lobe appeared consistent with infectious or inflammatory process. A pulmonary nodule within the right posterior costophrenic sulcus measuring 6 mm appeared unchanged dating back to 2014. There were no suspicious pulmonary nodules noted and there was no mediastinal or hilar adenopathy noted. There were bilateral thyroid nodules with the dominant nodule in the posterior left lobe measuring up to 1.1 x 2.5 cm. There is no evidence of metastatic involvement within the abdomen/pelvis but there was evidence of new osteoblastic bone metastases involving multiple thoracic and lumbar vertebral bodies, blastic lesions within the left sacrum and left iliac wing, and a lytic lesion involving the medial right ilium. She is seen for a follow-up visit. She has not been feeling good. She is generally weak, particularly in the lower extremities. She says she cannot get up and walk around, and she has only very minimal activity. ECOG score is 3. She complains that she has no appetite. She has not had fever, night sweats, or hot flashes. She has been having pain in the left lateral chest/flank area. It comes and goes. She has only a little bit of cough. She does not complain of shortness of breath. She is otherwise not been having chest pain. She has no GI complaints other than her bowel function tends to come and go. Bladder function remains adequate. She has no other joint or bone pain. She does not complain of headache. She does have some orthostatic lightheadedness. She has no numbness/paresthesia or other focal neurologic symptoms. Medications: Atenolol 1 Tablet (of 15 mg) Oral daily, Felodipine ER 1 Tablet (of 5 mg) Tablet SR 24 HR Oral daily, Lisinopril 1 (10 mg) Tablet Oral daily, Simvastatin 1 (40 mg) Tablet Oral daily Allergies: Aspirin Vital Signs: Performed on Dec 15, 2020 13:04 Height - 63.00 in Weight - 140 lbs (HIGH) BSA - 1.66 sq.m BMI - 24.80 Temperature - 97.8 F (LOW) Pulse - 75 /min Respiration - 16 /min BP - 116/58 mm(hg) O2 Sat - 96 % Pain - 6 Physical Examination: Constitutional - She appears generally weak, Eyes - Sclerae nonicteric. Conjunctivae clear, ENMT - No lesions noted in the oral cavity, Hematologic/Lymphatic - No cervical or clavicular adenopathy, Respiratory - Lungs sound clear but with diminished air movement at the left base, Cardiovascular - Heart rhythm is regular. There is no murmur, gallop, or rub noted, Breasts - The left chest wall shows no lesions. There is no axillary adenopathy noted, Abdomen - Soft. Liver and spleen are not enlarged. There is no abdominal mass or ascites noted and there is no inguinal adenopathy, Back/Spine - There is no bony tenderness in the spine or ribs, Extremities - No edema, Neurologic - There is proximal leg weakness bilaterally. She does not appear to have any focal neurologic deficit. Lab/Imaging: Her laboratory studies from 12/07/2020 included CBC showing hemoglobin 14.1 g, white blood cell count 5000, and platelet count 172,000. Comprehensive metabolic profile showed normal renal function with BUN 17 and creatinine 0.91 mg/dL. The bilirubin and liver enzymes, including alkaline phosphatase, were normal. Problem List: 1. 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 2. History of left breast cancer treated with left mastectomy in 1980. She had a chest wall recurrence in 2004 treated by excision followed by radiation and 5 years of adjuvant tamoxifen. 3. 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 4. She had previously undergone TURBT for superficial bladder cancer in July 2007 and in November 2011. 5. Hypertension. 6. Hyperlipidemia. 7. Type II diabetes. 8. Chronic kidney disease. 9. Osteoporosis. 10. She has a history of right lower extremity DVT following left total hip arthroplasty in 2007. Problems Addressed with this Encounter and Plan: 1. Patient with suspected osteoblastic metastatic disease involving the L3 vertebral body and possibly sacrum, based on abnormal imaging studies, including CT and bone scans. She also has had elevated tumor markers for breast cancer, which have been slowly increasing. During the course of her follow-up I had felt that the findings were suspicious for slowly progressive metastatic breast cancer, though metastatic disease had never been clearly documented. She had not been symptomatic until earlier this year when she began having pain and subsequently weakness in the lower extremities. The symptoms had initially improved on steroid therapy. However, she recently presented to the emergency room in [place] with new onset of pain in the left lateral chest/left flank area. At that point she had experienced a significant decline in her performance status. Her CT scans showed evidence of new left pleural effusion and obvious worsening of metastatic bone involvement which included thoracic and lumbar vertebral bodies and the pelvis. The CT findings and clinical implications were reviewed with the patient and her family. The clinical picture and elevated CA 15-3 level are consistent with metastatic breast cancer, which is far more likely than a metastatic urothelial cancer, though ideally it should be confirmed with biopsy. At this point she will have additional laboratory studies and she will be scheduled for staging PET/CT. In the meantime, I will have her start low-dose steroid therapy with prednisone 10 mg twice daily, and I will begin arrangements to start systemic therapy with fulvestrant in combination with a CDK 4/6 inhibitor. She also will be recommended to have begin supportive therapy with denosumab for the metastatic bone involvement. In addition, depending on the PET/CT findings, she may require MRI of the spine for evaluation of the leg weakness. 2. She has been having orthostatic lightheadedness. Her blood pressure today is on the low side. As a precaution, she is advised to stop lisinopril and felodipine, but at least for now she will continue the atenolol. Signed By: Tom Arndt M.D. <<Signature on File>>
== END 2020-12-15 13:18 | disposition home or self-care (01) ==
LOC: ONCMED 13:17
PROVIDERS: PCP Physician Assistant Medical; Visit Provider Internal Medicine Medical Oncology
DX: R97.8 Other abnormal tumor markers (principal); Z85.3 Personal history of malignant neoplasm of breast; C79.51 Secondary malignant neoplasm of bone; I10 Essential (primary) hypertension; E78.5 Hyperlipidemia, unspecified; E11.22 Type 2 diabetes mellitus with diabetic chronic kidney disease; N18.9 Chronic kidney disease, unspecified; M81.0 Age-related osteoporosis without current pathological fracture; Z86.718 Personal history of other venous thrombosis and embolism; Z96.642 Presence of left artificial hip joint; Z92.21 Personal history of antineoplastic chemotherapy
CPT/HCPCS: 99215

== ENCOUNTER 2022-01-20 12:14 | Emergency (ER) | payer MEDICARE, OTHER, SELFPAY ==
[2022-01-20 12:21] VITALS: BP 179/131; PULSE 95; RESP 18; TEMP 36.9; O2SAT 98; BMI 21.2
--- NOTE | 2022-01-20 12:24 | XR_ITS ---
WS: [id number] Exam: XR hip LT 2-3V wo/w pel* [id number] Date/Time of Exam: 01/20/2022 12:24 PM Reason For Exam: fall/pain Total hip replacement is noted in satisfactory position. No sign of fracture or loosening. The visual ized pelvis is intact. Unremarkable adjacent soft tissues. XR/XR hip LT 2-3V wo/w pel* [id number] IMPRESSION: 1. Total hip prosthesis in place without complication or fracture. 2. The visualized pelvis is osteopenic but no acute pelvic fracture noted
--- NOTE | 2022-01-20 12:24 | W.ED.FALL ---
HPI - Fall General: Chief Complaint: Fall Stated Complaint: left hip pain post fall Time Seen by Provider: 01/20/22 12:21 Course Vital Signs: Vital signs: Vital Signs Temperature 98.5 F 01/20/22 12:21 Pulse Rate 89 01/20/22 14:24 Respiratory Rate 16 01/20/22 14:24 Blood Pressure 158/86 01/20/22 14:24 Pulse Oximetry 98 01/20/22 14:24 Oxygen Delivery Me thod 01/20/22 14:24 MDM - Fall Lab Data : 01/20/22 12:40 01/20/22 12:40 Radiology Impressions Hip/Pelvis X-Ray 01/20/22 12:24 IMPRESSION: 1. Total hip prosthesis in place without complication or fracture. 2. The visualized pelvis is osteopenic but no acute pelvic fracture noted Cervical Spine CT 01/20/22 12:30 IMPRESSION: 1. No acute cervical spine fracture. 2. Osteoblastic bone lesions at C5 and T2 are new since 12/17/2018. Patient has known osseous metastatic disease. New sites are now present at C5 and T2. Head CT 01/20/22 12:30 IMPRESSION: 1. No acute intracranial hemorrhage or edema. 2. Moderate atrophy and mild small vessel ischemic disease. Laboratory Results WBC 10.6 10^3/uL (4.0-10.0) H 01/20/22 12:40 RBC 4.96 10^6/uL (4.1-5.3) 01/20/22 12:40 Hgb 14.9 g/dL (11.5-15.3) 01/20/22 12:40 Hct 45.6 % (37.0-47.0) 01/20/22 12:40 MCV 91.9 fl (81-99) 01/20/22 12:40 MCH 30.0 pg (28.0-34.0) 01/20/22 12:40 MCHC 32.7 g/dL (30.0-36.0) 01/20/22 12:40 RDW 12.8 % (12.1-15.1) 01/20/22 12:40 Plt Count 235 10^3/cmm (130-400) 01/20/22 12:40 MPV 9.8 fL (7.4-10.4) 01/20/22 12:40 Neut % (Auto) 81.9 % 01/20/22 12:40 Lymph % (Auto) 6.8 % 01/20/22 12:40 [place] % (Auto) 10.1 % 01/20/22 12:40 Eos % (Auto) 0.2 % 01/20/22 12:40 Baso % (Auto) 0.5 % 01/20/22 12:40 Neut # (Auto) 8.64 10^3/uL (1.8-7.7) H 01/20/22 12:40 Lymph # (Auto) 0.7 10^3/uL (0.8-4.8) L 01/20/22 12:40 [place] # (Auto) 1.1 10^3/uL (0.2-0.9) H 01/20/22 12:40 Eos # (Auto) 0.0 10^3/uL (0.0-0.8) 01/20/22 12:40 Baso # (Auto) 0.1 10^3/uL (0.0-0.1) 01/20/22 12:40 Nucleated RBC % (auto) 0 % 01/20/22 12:40 Nucleated RBCs # 0.0 /100WBC 01/20/22 12:40 Sodium 137 mmol/L (136-145) 01/20/22 12:40 Potassium 4.1 mmol/L (3.5-5.1) 01/20/22 12:40 Chloride 102 mmol/L (98-107) 01/20/22 12:40 Carbon Dioxide 24 mmol/L (22-29) 01/20/22 12:40 Anion Gap 15.1 (5-19) 01/20/22 12:40 BUN 18 mg/dL (8-23) 01/20/22 12:40 Creatinine 0.9 mg/dL (0.5-0.9) 01/20/22 12:40 GFR Calculation Not Reportable 01/20/22 12:40 Glucose 127 mg/dL (65-115) H 01/20/22 12:40 Calculated Osmolality 287 mOsm/kg (285-295) 01/20/22 12:40 Calcium 10.0 mg/dL (8.5-10.5) 01/20/22 12:40 Total Bilirubin 0.7 mg/dL (0.15-1.2) 01/20/22 12:40 AST 20 U/L (0-32) 01/20/22 12:40 ALT 12 U/L (0-33) 01/20/22 12:40 Alkaline Phosphatase 73 U/L (35-105) 01/20/22 12:40 Total Protein 7.1 g/dL (6.6-8.7) 01/20/22 12:40 Albumin 3.9 g/dL (3.5-5.2) 01/20/22 12:40 Globulin 3.2 g/dL (1.3-4.6) 01/20/22 12:40 Discharge Plan Discharge Patient Disposition: Home Clinical Impression: Fall, Metastatic bone tumor Condition: Stable Discharge Orders: Discharge ED (Routine); Ordered 01/20/22 Ordered By: Maurice Condon Referrals: Vito Reyes [Primary Care Provider] - Patient Instructions: Opioid Safety, Pain Management Activity Restrictions/Additional Instructions: Recommend pain medication be managed by the hospice program. He should contact your hospice nurse if you need medications for pain. Continue your other medications on a regular basis as previously prescribed. Coding Level of Care Code ED Winding Machine Operator for Leonard Ramirez
--- NOTE | 2022-01-20 12:30 | CT_ITS ---
WS: [id number] CT CERVICAL SPINE HISTORY: fall TECHNIQUE: Contiguous 2.5 mm axial imaging performed through the entire cervical spine. Sagittal and coronal reformats also performed. All CT scans at [facility] use at least one of these dose o ptimization techniques: automated exposure control; mA and/or kV adjustment per patient size (include s targeted exams where dose is matched to clinical indication); or iterative reconstruction. DLP: 1286.16 mGy.cm COMPARISON: 12/17/2018 chest CTA. C4 retrolisthesis by 3 mm. Severe disc space narrowing at C4-5. Moderate disc space narrowing at C5-6 . Sclerotic focus from patient's metastatic disease at T2. Sclerotic focus at the LEFT lateral C5. No fractures are identified. Moderate size osteophyte encroaches upon the ventral thecal sac and cord at C4-5. Facet joint arthritis and mild foraminal stenosis throughout the cervical spine. Small amount of fluid at the LEFT lung apex. Mildly enlarged LEFT thyroid. CT/CT cervical spin wo con* [id number] IMPRESSION: 1. No acute cervical spine fracture. 2. Osteoblastic bone lesions at C5 and T2 are new since 12/17/2018. Patient has known osseous metastatic disease. New sites are now present at C5 and T2.
--- NOTE | 2022-01-20 12:30 | CT_ITS ---
WS: [id number] CT HEAD NONCONTRAST HISTORY: fall TECHNIQUE: Contiguous axial imaging performed through the brain in 2.5 mm imaging. Bone and soft tiss ue windows. Sagittal and coronal reformats reviewed. All CT scans at [facility] use at least one of these dose optimization techniques: automated exposure control; mA and/or kV adjustment per pa tient size (includes targeted exams where dose is matched to clinical indication); or iterative recon struction. DLP: 1286.16 mGy.cm COMPARISON: None available. No acute intracranial hemorrhage, midline shift or mass effect. Moderate atrophy is symmetric. Mild small vessel ischemic disease. No large prior infarct. Ventricles: Ventricles and extra-axial spaces are dilated on the basis of atrophy. No inferior displacement of cerebellar tonsils. Paranasal sinuses: As visualized are clear. Mastoid air cells: Small amount of fluid in the mastoid air cell tips. Calvarium and scalp: Skull is intact with no soft tissue edema or swelling. CT/CT head wo con* [id number] IMPRESSION: 1. No acute intracranial hemorrhage or edema. 2. Moderate atrophy and mild small vessel ischemic disease.
[2022-01-20 13:01] LABS: Basophils # 0.1 10^3/uL (0.0-0.1); Basophils % 0.5 %; Eosinophils % 0.2 %; Hematocrit 45.6 % (37.0-47.0); Hemoglobin 14.9 g/dL (11.5-15.3); Lymphocytes # 0.7 10^3/uL (0.8-4.8); Lymphocytes % 6.8 %; Mean Corpuscular HGB Conc 32.7 g/dL (30.0-36.0); Mean Corpuscular Volume 91.9 fl (81-99); Mean Platelet Volume 9.8 fL (7.4-10.4); Monocytes # 1.1 10^3/uL (0.2-0.9); Monocytes % 10.1 %; Neutrophils # 8.64 10^3/uL (1.8-7.7); Neutrophils % 81.9 %; Nucleated Red Blood Cells % 0 %; Platelet Count 235 10^3/cmm (130-400); Red Blood Count 4.96 10^6/uL (4.1-5.3); Red Cell Distribution Width 12.8 % (12.1-15.1); White Blood Count 10.6 10^3/uL (4.0-10.0)
[2022-01-20 13:11] LABS: Alanine Aminotransferase 12 U/L (0-33); Albumin Level 3.9 g/dL (3.5-5.2); Alkaline Phosphatase 73 U/L (35-105); Anion Gap 15.1 (5-19); Aspartate Amino Transferase 20 U/L (0-32); Blood Urea Nitrogen 18 mg/dL (8-23); Carbon Dioxide 24 mmol/L (22-29); Chloride 102 mmol/L (98-107); Globulin 3.2 g/dL (1.3-4.6); Glucose 127 mg/dL (65-115); Osmolality Calculated 287 mOsm/kg (285-295); Potassium 4.1 mmol/L (3.5-5.1); Sodium 137 mmol/L (136-145); Total Bilirubin 0.7 mg/dL (0.15-1.2); Total Protein 7.1 g/dL (6.6-8.7)
[2022-01-20 14:24] VITALS: BP 158/86; PULSE 89; RESP 16; O2SAT 98
--- NOTE | 2022-01-20 16:38 | ED_ITS ---
HPI - Fall General: Chief Complaint: Fall Stated Complaint: left hip pain post fall Time Seen by Provider: 01/20/22 12:21 Source: patient Mode of arrival: EMS History of Present Illness: 86-year-old female presents to the emergency room via ambulance. She has a c-collar in place she fell last night at home. 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 Is awake and alert can tell me that she fell less than around 3:00 she is not sure how long she was down on the ground. She denies any other injury she states her head and neck hurt his feet and she is in his seat collar. There is no loss conscio usness she is not any anticoagulants. MD complaint: fall Onset (ago): hour(s) Fall from: standing Fall witnessed: no Place fall occurred: home Loss of consciousness: None Prolonged down time: yes Context: tripped/slipped Location of injury: head Associated symptoms-after fall: Reports difficulty walking, headache(s), neck pain and weakness; Denies abdominal pain, chest pain, confusion, hematuria, lightheadedness, nu mbness, short of breath or vertigo Review of Systems Const: Denies: fever(s), chills, body aches, change in appetite, fatigue or malaise ENMT: Denies: throat pain, ear or mastoid pain, nasal discharge or nasal congestion Card: Denies: chest pain or lightheadedness Resp: Denies: dyspnea, productive cough or non-productive cough GI: Denies: abdominal pain : Denies: hematuria Musc: Reports: neck pain Skin/Breast: Denies: rash or pruritus Neuro: Reports: headache(s) and difficulty walking; Denies: vertigo or confusion PFSH ED PFSH: Medical History (Updated 01/20/22 @ 16:42 by Maurice Condon DO) Bladder cancer History of DVT (deep vein thrombosis) Hyperlipidemia Hypertension Malignant neoplasm metastatic to bone Osteoporosis Social History (Updated 01/20/22 @ 16:42 by Maurice Condon DO) Smoking and tobacco status: never smoked Alcohol intake: never Physical Exam Const: COMMON NORMALS: no acute distress GENERAL APPEARANCE: cooperative and comfortable ORIENTATION/CONSCIOUSNESS: Yes awake HENMT: COMMON NORMALS: normocephalic, atraumatic and hearing grossly normal bilaterally HEAD & SCALP: normocephalic and atraumatic Resp: COMMON NORMALS: normal respiratory effort, No retractions, No use of accessory muscles and clear to auscultation bilaterally AUSCULTATION: clear to auscultation bilaterally Cardio: COMMON NORMALS: regular rate, regular rhythm and No murmurs present ( Cardio) RATE: regular rate RHYTHM: regular rhythm GI: COMMON NORMALS: Soft to palpation and No hepatosplenomegaly present AUSCULTATION: Yes normoactive bowel sounds PALPATION: Yes Soft to palpation, No Tenderness to palpation present (GI), No Guarding due to palpation present (GI) and Yes No hepatosplenomegaly present Extremity: COMMON NORMALS: normal to inspection, capillary refill normal, no clubbing, cyanosis or edema, no calf tenderness and no pedal edema Skin: COMMON NORMALS: no rashes or lesions noted GENERAL SKIN EXAM: no rashes or lesions noted Course Vital Signs: Vital signs: Vital Signs Temperature 98.5 F 01/20/22 12:21 Pulse Rate 89 01/20/22 14:24 Respiratory Rate 16 01/20/22 14:24 Blood Pressure 158/86 01/20/22 14:24 Pulse Oximetry 98 01/20/22 14:24 Oxygen Delivery Me thod 01/20/22 14:24 MDM - Fall Medical Decision Making Labs and imaging reviewed. There are no thoracic and cervical spine metastatic lesions. There is no fracture. Discussed with patient's family at this point we can discharge her home hospice to manage further pain control issues Medical Records I reviewed the patient's medical records. Lab Data I reviewed the patient's lab results. : 01/20/22 12:40 01/20/22 12:40 Radiology Impressions Hip/Pelvis X-Ray 01/20/22 12:24 IMPRESSION: 1. Total hip prosthesis in place without complication or fracture. 2. The visualized pelvis is osteopenic but no acute pelvic fracture noted Cervical Spine CT 01/20/22 12:30 IMPRESSION: 1. No acute cervical spine fracture. 2. Osteoblastic bone lesions at C5 and T2 are new since 12/17/2018. Patient has known osseous metastatic disease. New sites are now present at C5 and T2. Head CT 01/20/22 12:30 IMPRESSION: 1. No acute intracranial hemorrhage or edema. 2. Moderate atrophy and mild small vessel ischemic disease. Laboratory Results WBC 10.6 10^3/uL (4.0-10.0) H 01/20/22 12:40 RBC 4.96 10^6/uL (4.1-5.3) 01/20/22 12:40 Hgb 14.9 g/dL (11.5-15.3) 01/20/22 12:40 Hct 45.6 % (37.0-47.0) 01/20/22 12:40 MCV 91.9 fl (81-99) 01/20/22 12:40 MCH 30.0 pg (28.0-34.0) 01/20/22 12:40 MCHC 32.7 g/dL (30.0-36.0) 01/20/22 12:40 RDW 12.8 % (12.1-15.1) 01/20/22 12:40 Plt Count 235 10^3/cmm (130-400) 01/20/22 12:40 MPV 9.8 fL (7.4-10.4) 01/20/22 12:40 Neut % (Auto) 81.9 % 01/20/22 12:40 Lymph % (Auto) 6.8 % 01/20/22 12:40 [place] % (Auto) 10.1 % 01/20/22 12:40 Eos % (Auto) 0.2 % 01/20/22 12:40 Baso % (Auto) 0.5 % 01/20/22 12:40 Neut # (Auto) 8.64 10^3/uL (1.8-7.7) H 01/20/22 12:40 Lymph # (Auto) 0.7 10^3/uL (0.8-4.8) L 01/20/22 12:40 [place] # (Auto) 1.1 10^3/uL (0.2-0.9) H 01/20/22 12:40 Eos # (Auto) 0.0 10^3/uL (0.0-0.8) 01/20/22 12:40 Baso # (Auto) 0.1 10^3/uL (0.0-0.1) 01/20/22 12:40 Nucleated RBC % (auto) 0 % 01/20/22 12:40 Nucleated RBCs # 0.0 /100WBC 01/20/22 12:40 Sodium 137 mmol/L (136-145) 01/20/22 12:40 Potassium 4.1 mmol/L (3.5-5.1) 01/20/22 12:40 Chloride 102 mmol/L (98-107) 01/20/22 12:40 Carbon Dioxide 24 mmol/L (22-29) 01/20/22 12:40 Anion Gap 15.1 (5-19) 01/20/22 12:40 BUN 18 mg/dL (8-23) 01/20/22 12:40 Creatinine 0.9 mg/dL (0.5-0.9) 01/20/22 12:40 GFR Calculation Not Reportable 01/20/22 12:40 Glucose 127 mg/dL (65-115) H 01/20/22 12:40 Calculated Osmolality 287 mOsm/kg (285-295) 01/20/22 12:40 Calcium 10.0 mg/dL (8.5-10.5) 01/20/22 12:40 Total Bilirubin 0.7 mg/dL (0.15-1.2) 01/20/22 12:40 AST 20 U/L (0-32) 01/20/22 12:40 ALT 12 U/L (0-33) 01/20/22 12:40 Alkaline Phosphatase 73 U/L (35-105) 01/20/22 12:40 Total Protein 7.1 g/dL (6.6-8.7) 01/20/22 12:40 Albumin 3.9 g/dL (3.5-5.2) 01/20/22 12:40 Globulin 3.2 g/dL (1.3-4.6) 01/20/22 12:40 Discharge Plan Discharge Clinical Impression: Fall, Metastatic bone tumor Discharge Orders: Discharge ED (Routine); Ordered 01/20/22 Ordered By: Maurice Condon Referrals: Vito Reyes [Primary Care Provider] - Patient Instructions: Opioid Safety, Pain Management Activity Restrictions/Additional Instructions: Recommend pain medication be managed by the hospice program. He should contact your hospice nurse if you need medications for pain. Continue your other medications on a regular basis as previously prescribed. Coding Level of Care Code ED Academic Affairs Vice President for Leonard Ramirez
== END 2022-01-20 16:00 | disposition home or self-care (01) ==
PROVIDERS: Emergency Provider Family Medicine; PCP Physician Assistant Medical
DX: C79.51 Secondary malignant neoplasm of bone (principal); Z85.51 Personal history of malignant neoplasm of bladder; E78.5 Hyperlipidemia, unspecified; I10 Essential (primary) hypertension
CPT/HCPCS: 70450; 72125; 73502; 80053; 85025; 99284